=== PATIENT | male | born 1975 | race Caucasian/White ===

== ENCOUNTER 2019-05-03 19:57 | Emergency (ER) | payer OTHER ==
[~2019-05-03] VITALS: Ht 172.7 cm; Wt 106.0 kg
[2019-05-03 21:10] LABS: BASOPHILS # (AUTO) 0.1 X10'3 (0-0.2); BASOPHILS % (AUTO) 0.6 % (0-1); EOSINOPHILS % (AUTO) 0.3 % (0-6); HEMATOCRIT 45.1 % (42.0-52.0); HEMOGLOBIN 15.4 g/dl (14.0-17.9); LYMPHOCYTES # (AUTO) 1.5 X10'3 (1.1-4.8); LYMPHOCYTES % (AUTO) 12.1 % (21-51); MEAN CORPUSCULAR HEMOGLOBIN 31.2 PG (27.0-31.0); MEAN CORPUSCULAR HGB CONC 34.2 g/dL (33.0-36.5); MEAN CORPUSCULAR VOLUME 91.3 FL (78-98); MEAN PLATELET VOLUME 7.5 FL (7.4-10.4); MONOCYTES # (AUTO) 0.8 X10'3 (0-0.9); MONOCYTES % (AUTO) 6.4 % (2-12); NEUTROPHILS # (AUTO) 9.7 X10'3 (1.8-7.7); NEUTROPHILS % (AUTO) 80.6 % (42-75); PLATELET COUNT 217 X10'3 (140-440); RED BLOOD COUNT 4.94 X10'6 (4.70-6.10); RED CELL DISTRIBUTION WIDTH 12.8 % (11.5-14.5); WHITE BLOOD COUNT 12.1 X10'3 (4.5-11.0)
[2019-05-03 21:20] LABS: ALANINE AMINOTRANSFERASE 29 U/L (12-78); ALBUMIN 3.7 G/DL (3.4-5.0); ALBUMIN/GLOBULIN RATIO 0.9 (1.1-1.5); ALKALINE PHOSPHATASE 124 IU/L (46-116); ANION GAP 8 (8-16); BILIRUBIN,TOTAL 0.6 MG/DL (0.1-1.0); BLOOD UREA NITROGEN 11 MG/DL (7-18); BUN/CREATININE RATIO 12.5 (5.4-32.0); CALCIUM 9.2 MG/DL (8.5-10.1); CHLORIDE 103 MMOL/L (99-107); CREATININE 0.88 MG/DL (0.60-1.10); GLUCOSE 120 MG/DL (70-104); SODIUM 136 MMOL/L (135-145); TOTAL CARBON DIOXIDE 25.2 MMOL/L (24-32); TOTAL PROTEIN 7.7 G/DL (6.4-8.2); eGFR > 90 ML/MIN
[2019-05-03 21:22] LABS: POTASSIUM 4.5 MMOL/L (3.5-5.1)
[2019-05-03 21:32] LABS: ASPARTATE AMINO TRANSFERASE 35 U/L (10-37)
--- NOTE | 2019-05-03 21:32 | NUR ---
Awaiting lab results. Pt's girlfriend at bedside. Pt reports pain is minimal but he has a lot of pressure to the left face, swelling pronounced to the left cheek.
[2019-05-03] MEDS ORDERED: AMOX-422 PO (21:37)
[2019-05-03 21:51] VITALS: BP 188/117
== END 2019-05-03 21:57 | disposition home or self-care (01) ==
LOC: ER 19:58
DX: K04.7 Periapical abscess without sinus (principal); F17.200 Nicotine dependence, unspecified, uncomplicated; Z79.2 Long term (current) use of antibiotics
CPT/HCPCS: 36415; 80053; 85025; 99283

== ENCOUNTER 2019-05-05 16:11 | Emergency (ER) | payer OTHER ==
[~2019-05-05] VITALS: Ht 172.7 cm; Wt 109.1 kg
[~2019-05-05 16:11] MED LIST: AMOX-422 PO
[2019-05-05 16:57] VITALS: BP 155/101
== END 2019-05-05 17:16 | disposition home or self-care (01) ==
LOC: ER 16:12
DX: K04.7 Periapical abscess without sinus (principal); Z79.2 Long term (current) use of antibiotics
CPT/HCPCS: 99281

== ENCOUNTER 2022-02-14 21:25 | Emergency (ER) | payer OTHER ==
[~2022-02-14] VITALS: Ht 172.7 cm; Wt 109.1 kg
--- NOTE | 2022-02-14 21:50 | NUR ---
Pt presents to the ed with c/o flu-like symptoms for the past 3-4 days; he denies known contact with anyone with covid, or other infectious illnesses. The pt denies any alleviating or exacerbating factors; the pt denies sorethroat, sob cp, or gu symptoms; he is a/o, nad, jin w/d.
[2022-02-14] MEDS ORDERED: ondansetron 4mg rapidly disintigrating tab PO ONE (22:10)
[2022-02-14] MEDS ORDERED: acetaminophen 325mg tablet PO ONE (22:10)
--- NOTE | 2022-02-14 22:50 | NUR ---
pt medicated per mar
[2022-02-14] MEDS ORDERED: levoFLOXACIN 750MG TABLET PO ONE (23:00)
[2022-02-14] MEDS ORDERED: LEVO500T90 PO ×2 (23:04)
[2022-02-14] MEDS ORDERED: ALBU8.5H17 INH ×4 (23:04→23:15)
[2022-02-14] MEDS ORDERED: ONDA8TAB13 PO ×2 (23:04)
[2022-02-14] MEDS ORDERED: CIPR-202 PO ×2 (23:15)
[2022-02-14] MEDS ORDERED: ONDA-104 PO ×2 (23:15)
[2022-02-14 23:41] VITALS: BP 132/74
== END 2022-02-14 23:44 | disposition home or self-care (01) ==
LOC: ER 21:27
DX: J18.9 Pneumonia, unspecified organism (principal)
CPT/HCPCS: 71045; 99284

== ENCOUNTER 2022-02-18 09:46 | Inpatient (IN) | payer MEDICAID, OTHER ==
[~2022-02-18] VITALS: Ht 172.7 cm; Wt 110.9 kg
[~2022-02-18 09:46] MED LIST changes: +ALBU8.5H17 INH; -AMOX-422 PO; +CIPR-202 PO; +LEVO500T90 PO; +ONDA-104 PO; +ONDA8TAB13 PO
[2022-02-18] MEDS ORDERED: aspirin 81mg tab.chew PO ONE (10:05)
[2022-02-18] MEDS ORDERED: heparin 10,000 units/1 ML INJ IV ONE ×2 (10:05→10:15)
[2022-02-18] MEDS ORDERED: heparin 10,000 units/1 ML INJ IV PRN (10:20)
[2022-02-18] MEDS ORDERED: normal saline 1000ml 1,000 ML IV ONE (10:30)
[2022-02-18] MEDS: heparin 25,000 UNIT/250ml bag 250 ML IV SCH (10:34)
[2022-02-18 10:42] LABS: APTT 28 SECONDS (22-32); BASOPHILS % (AUTO) 0.3 % (0-1); EOSINOPHILS # (AUTO) 0.1 X10'3 (0-0.9); EOSINOPHILS % (AUTO) 0.6 % (0-6); HEMATOCRIT 38.6 % (42.0-52.0); LYMPHOCYTES # (AUTO) 2.4 X10'3 (1.1-4.8); LYMPHOCYTES % (AUTO) 19.7 % (21-51); MEAN CORPUSCULAR HEMOGLOBIN 30.8 PG (27.0-31.0); MEAN CORPUSCULAR HGB CONC 33.8 g/dL (33.0-36.5); MEAN CORPUSCULAR VOLUME 91.2 FL (78-98); MEAN PLATELET VOLUME 7.6 FL (7.4-10.4); MONOCYTES # (AUTO) 1.1 X10'3 (0-0.9); MONOCYTES % (AUTO) 8.9 % (2-12); NEUTROPHILS # (AUTO) 8.4 X10'3 (1.8-7.7); NEUTROPHILS % (AUTO) 70.5 % (42-75); PLATELET COUNT 342 X10'3 (140-440); RED BLOOD COUNT 4.23 X10'6 (4.70-6.10); RED CELL DISTRIBUTION WIDTH 12.8 % (11.5-14.5)
[2022-02-18 11:04] LABS: ALBUMIN 2.4 G/DL (3.4-5.0); ALBUMIN/GLOBULIN RATIO 0.4 (1.1-1.5); ANION GAP 9 (8-16); ASPARTATE AMINO TRANSFERASE 68 U/L (10-37); BILIRUBIN,TOTAL 0.4 MG/DL (0.1-1.0); BLOOD UREA NITROGEN 9 MG/DL (7-18); CALCIUM 8.5 MG/DL (8.5-10.1); CHLORIDE 102 MMOL/L (99-107); GLUCOSE 164 MG/DL (70-104); MAGNESIUM 2.3 MG/DL (1.5-2.4); POTASSIUM 3.7 MMOL/L (3.5-5.1); SODIUM 137 MMOL/L (135-145); TOTAL CARBON DIOXIDE 25.9 MMOL/L (24-32); eGFR 81 ML/MIN
[2022-02-18 11:05] LABS: ALANINE AMINOTRANSFERASE 61 U/L (12-78); ALKALINE PHOSPHATASE 95 IU/L (46-116)
[2022-02-18 11:28] LABS: ETHANOL < 0.010 GM/DL (0.0-0.010)
[2022-02-18] MEDS: metoprolol tartrate 1mg/ml inj IV SCH ×16 (11:44→21:15)
[2022-02-18] MEDS ORDERED: LORazepam 2 mg/ml vial IV ONE (12:10)
[2022-02-18] MEDS ORDERED: metoprolol tartrate 1mg/ml inj IV ONE (12:10)
[2022-02-18] MEDS ORDERED: nitroGLYCERIN 0.2mg/hour patch TD ONE (12:15)
[2022-02-18 12:44] LABS: C-REACTIVE PROTEIN 11.02 MG/DL (0.0-0.5)
[2022-02-18] MEDS ORDERED: furosemide 10 MG/1 ML 10ml inj IV ONE (13:00)
[2022-02-18] MEDS ORDERED: morphine 2 MG/ML inj. syringe IV PRN ×2 (15:00)
[2022-02-18] MEDS ORDERED: magnesium 4gm in 100ml NS 100 ML IV PRN (15:00)
[2022-02-18] MEDS ORDERED: mag hydrox/Alum hydrox/simeth 30ml oral suspension PO PRN (15:00)
[2022-02-18] MEDS ORDERED: ondansetron/PF 4mg/2ml inj IV PRN (15:00)
[2022-02-18] MEDS ORDERED: magnesium 2GM in 50ml NS 50 ML IV PRN (15:00)
[2022-02-18] MEDS ORDERED: potassium CL 10mEq/100ml bag 100 ML IV PRN (15:00)
[2022-02-18] MEDS ORDERED: acetaminophen 325mg tablet PO PRN (15:00)
[2022-02-18] MEDS ORDERED: magnesium hydroxide 30ml (MOM) UD suspension PO PRN (15:00)
[2022-02-18] MEDS ORDERED: magnesium Cl slow-release 64mg tablet PO PRN (15:00)
[2022-02-18] MEDS ORDERED: potassium Cl 20 mEq SR tablet PO PRN ×2 (15:00)
[2022-02-18] MEDS ORDERED: NO HOME MEDS (16:41)
[2022-02-18 17:15] VITALS: BP 115/80
[2022-02-18 17:26] LABS: MAGNESIUM 2.2 MG/DL (1.5-2.4); POTASSIUM 4.3 MMOL/L (3.5-5.1)
[2022-02-18 18:00] VITALS: BP 117/68
[2022-02-18] MEDS: cefTRIAXone 1g/NS 100ml IVPB 100 ML IV SCH (18:11)
[2022-02-18] MEDS: K and/or MAG REPLACEMENT MC SCH (20:00)
[2022-02-18] MEDS: docusate sod 100mg capsule PO SCH (21:04)
[2022-02-18] MEDS: carVEDilol 3.125mg tablet PO SCH (21:05)
[2022-02-18] MEDS: furosemide 40mg/4ml inj IV SCH (21:05)
[2022-02-18 22:00] VITALS: BP 119/71
[2022-02-19] MEDS: heparin 10,000 units/1 ML INJ IV PRN ×3 (00:59→22:35)
[2022-02-19 02:00] VITALS: BP 117/79
[2022-02-19] MEDS: heparin 25,000 UNIT/250ml bag 250 ML IV SCH ×2 (05:25→22:36)
[2022-02-19 06:00] VITALS: BP 127/88
--- NOTE | 2022-02-19 06:31 | NUR ---
Problems reprioritized. Patient report given, questions answered & plan of care reviewed with VARINDER Elliott. Heparin infusion, continues per protocol. Nex PTT at 0659, order keyed in.
[2022-02-19 07:47] LABS: BASOPHILS # (AUTO) 0.1 X10'3 (0-0.2); BASOPHILS % (AUTO) 0.6 % (0-1); EOSINOPHILS # (AUTO) 0.1 X10'3 (0-0.9); EOSINOPHILS % (AUTO) 0.7 % (0-6); HEMATOCRIT 35.6 % (42.0-52.0); LYMPHOCYTES # (AUTO) 1.9 X10'3 (1.1-4.8); LYMPHOCYTES % (AUTO) 20.1 % (21-51); MEAN CORPUSCULAR HEMOGLOBIN 30.4 PG (27.0-31.0); MEAN CORPUSCULAR HGB CONC 33.7 g/dL (33.0-36.5); MEAN PLATELET VOLUME 7.8 FL (7.4-10.4); MONOCYTES # (AUTO) 0.8 X10'3 (0-0.9); MONOCYTES % (AUTO) 9.2 % (2-12); NEUTROPHILS # (AUTO) 6.4 X10'3 (1.8-7.7); NEUTROPHILS % (AUTO) 69.4 % (42-75); PLATELET COUNT 290 X10'3 (140-440); RED BLOOD COUNT 3.96 X10'6 (4.70-6.10); RED CELL DISTRIBUTION WIDTH 12.6 % (11.5-14.5); WHITE BLOOD COUNT 9.2 X10'3 (4.5-11.0)
[2022-02-19 07:55] LABS: ALBUMIN 2.1 G/DL (3.4-5.0); ANION GAP 12 (8-16); BLOOD UREA NITROGEN 13 MG/DL (7-18); BUN/CREATININE RATIO 14.6 (5.4-32.0); CALCIUM 8.3 MG/DL (8.5-10.1); CHLORIDE 103 MMOL/L (99-107); CREATININE 0.89 MG/DL (0.60-1.10); GLUCOSE 144 MG/DL (70-104); POTASSIUM 3.9 MMOL/L (3.5-5.1); SODIUM 140 MMOL/L (135-145); TOTAL CARBON DIOXIDE 25.3 MMOL/L (24-32); eGFR > 90 ML/MIN
[2022-02-19] MEDS: K and/or MAG REPLACEMENT MC SCH ×2 (08:00→20:00)
[2022-02-19] MEDS: cefTRIAXone 1g/NS 100ml IVPB 100 ML IV SCH (09:09)
[2022-02-19] MEDS: aspirin 81mg, enteric-coated 1 TAB TABLET.DR PO SCH (09:09)
[2022-02-19] MEDS: lisinopril 5mg tablet PO SCH (09:09)
[2022-02-19] MEDS: atorvastatin 20mg tablet PO SCH (09:09)
[2022-02-19] MEDS: carVEDilol 3.125mg tablet PO SCH ×2 (09:10→20:41)
[2022-02-19] MEDS: docusate sod 100mg capsule PO SCH ×2 (09:10→20:41)
[2022-02-19] MEDS: furosemide 40mg/4ml inj IV SCH ×2 (09:10→20:41)
[2022-02-19 11:00] VITALS: BP 112/73
[2022-02-19 15:00] VITALS: BP 112/72
--- NOTE | 2022-02-19 17:13 | NUR ---
Mr Germain has been assessed as indicated. he has been noted to be both pleasant and cooperative. He has been visited by both friends and family this shift. His mother is at the bedside at this time. He is up to a chair at this time. He has been asleep most of this shift. His heparin drip has been adjusted 2x this shift including a period of it being held for 2 hours. The next PTT will be drawn at 2100 tonight. The patient is aware and compliant with the care. plan. He is to have a cardiac catheterization on Saturday. this will happen after heparin therapy and diuresing can be performed. He has been encouraged to limit PO fluids and to limit sodium. he has been educated on the limits of a heart health diet. His mother states that she spoke with the "doctor" and he said that Mr. Germain can have a burger from an outside source. Both mother and patient have been educated on the importance of limiting sodium intake at this time. Mr Germain is presently resting quietly with no s/s of distress or discomfort
[2022-02-19 18:00] VITALS: BP 112/72
--- NOTE | 2022-02-19 18:21 | NUR ---
Patient in room PCU 3023. I have received report from VARINDER Elliott and had the opportunity to ask questions and assume patient care. Heparin continues per protocol.
--- NOTE | 2022-02-19 18:24 | NUR ---
Problems reprioritized. Patient report given, questions answered & plan of care reviewed with VERENICE.
[2022-02-19 22:00] VITALS: BP 126/79
[2022-02-20 02:00] VITALS: BP 129/72
[2022-02-20 04:49] LABS: BASOPHILS % (AUTO) 0.2 % (0-1); EOSINOPHILS # (AUTO) 0.1 X10'3 (0-0.9); EOSINOPHILS % (AUTO) 0.9 % (0-6); HEMATOCRIT 35.5 % (42.0-52.0); HEMOGLOBIN 12.1 g/dl (14.0-17.9); LYMPHOCYTES # (AUTO) 2.4 X10'3 (1.1-4.8); LYMPHOCYTES % (AUTO) 24.7 % (21-51); MEAN CORPUSCULAR HEMOGLOBIN 30.8 PG (27.0-31.0); MEAN CORPUSCULAR HGB CONC 34.1 g/dL (33.0-36.5); MEAN CORPUSCULAR VOLUME 90.4 FL (78-98); MONOCYTES # (AUTO) 0.8 X10'3 (0-0.9); MONOCYTES % (AUTO) 7.9 % (2-12); NEUTROPHILS # (AUTO) 6.5 X10'3 (1.8-7.7); NEUTROPHILS % (AUTO) 66.3 % (42-75); PLATELET COUNT 323 X10'3 (140-440); RED BLOOD COUNT 3.92 X10'6 (4.70-6.10); WHITE BLOOD COUNT 9.8 X10'3 (4.5-11.0)
[2022-02-20 06:00] VITALS: BP 102/63
[2022-02-20 06:27] LABS: ALBUMIN 2.3 G/DL (3.4-5.0); ANION GAP 12 (8-16); BLOOD UREA NITROGEN 16 MG/DL (7-18); BUN/CREATININE RATIO 15.8 (5.4-32.0); CHLORIDE 104 MMOL/L (99-107); CREATININE 1.01 MG/DL (0.60-1.10); GLUCOSE 132 MG/DL (70-104); POTASSIUM 4.4 MMOL/L (3.5-5.1); SODIUM 142 MMOL/L (135-145); TOTAL CARBON DIOXIDE 26.4 MMOL/L (24-32); eGFR 80 ML/MIN
--- NOTE | 2022-02-20 06:52 | NUR ---
Problems reprioritized. Patient report given, questions answered & plan of care reviewed with VARINDER Elliott, Heparin continues per protocol.
[2022-02-20] MEDS: K and/or MAG REPLACEMENT MC SCH ×2 (08:00→20:00)
[2022-02-20] MEDS: cefTRIAXone 1g/NS 100ml IVPB 100 ML IV SCH (09:36)
[2022-02-20] MEDS: aspirin 81mg, enteric-coated 1 TAB TABLET.DR PO SCH (09:36)
[2022-02-20] MEDS: furosemide 40mg/4ml inj IV SCH (09:36)
[2022-02-20] MEDS: atorvastatin 20mg tablet PO SCH (09:37)
[2022-02-20] MEDS: docusate sod 100mg capsule PO SCH ×2 (09:37→21:47)
[2022-02-20] MEDS: carVEDilol 3.125mg tablet PO SCH ×2 (09:37→21:47)
[2022-02-20] MEDS: lisinopril 5mg tablet PO SCH (09:37)
[2022-02-20 11:00] VITALS: BP 123/71
[2022-02-20] MEDS ORDERED: furosemide 40mg/4ml inj IV SCH (11:35)
[2022-02-20] MEDS: heparin 25,000 UNIT/250ml bag 250 ML IV SCH (13:48)
[2022-02-20 15:00] VITALS: BP 95/60
[2022-02-20] MEDS: heparin 10,000 units/1 ML INJ IV PRN (16:11)
[2022-02-20 18:00] VITALS: BP 104/68
[2022-02-20 22:00] VITALS: BP 95/59
[2022-02-21] VITALS (12 sets, daily range): BP systolic 103–125; BP diastolic 65–82
[2022-02-21] MEDS: heparin 25,000 UNIT/250ml bag 250 ML IV SCH (03:00)
[2022-02-21 05:08] LABS: BASOPHILS # (AUTO) 0.1 X10'3 (0-0.2); BASOPHILS % (AUTO) 1.8 % (0-1); EOSINOPHILS # (AUTO) 0.1 X10'3 (0-0.9); EOSINOPHILS % (AUTO) 1.4 % (0-6); HEMATOCRIT 36.2 % (42.0-52.0); HEMOGLOBIN 12.1 g/dl (14.0-17.9); LYMPHOCYTES % (AUTO) 23.7 % (21-51); MEAN CORPUSCULAR HGB CONC 33.4 g/dL (33.0-36.5); MEAN CORPUSCULAR VOLUME 89.7 FL (78-98); MEAN PLATELET VOLUME 7.5 FL (7.4-10.4); MONOCYTES # (AUTO) 0.6 X10'3 (0-0.9); MONOCYTES % (AUTO) 7.1 % (2-12); NEUTROPHILS # (AUTO) 5.5 X10'3 (1.8-7.7); PLATELET COUNT 326 X10'3 (140-440); RED BLOOD COUNT 4.04 X10'6 (4.70-6.10); RED CELL DISTRIBUTION WIDTH 12.9 % (11.5-14.5); WHITE BLOOD COUNT 8.3 X10'3 (4.5-11.0)
[2022-02-21 05:10] LABS: ALBUMIN 2.2 G/DL (3.4-5.0); ANION GAP 10 (8-16); BLOOD UREA NITROGEN 14 MG/DL (7-18); BUN/CREATININE RATIO 15.7 (5.4-32.0); CALCIUM 8.7 MG/DL (8.5-10.1); CHLORIDE 104 MMOL/L (99-107); CREATININE 0.89 MG/DL (0.60-1.10); GLUCOSE 127 MG/DL (70-104); POTASSIUM 3.9 MMOL/L (3.5-5.1); SODIUM 140 MMOL/L (135-145); TOTAL CARBON DIOXIDE 25.9 MMOL/L (24-32); eGFR > 90 ML/MIN
[2022-02-21] MEDS ORDERED: LIDOcaine 1% (10mg/ml)w/preservative inj. 20ml MDV ONE (07:35)
[2022-02-21] MEDS ORDERED: fentaNYL/PF 50MCG/1 ML 2ML syringe ONE (07:35)
[2022-02-21] MEDS ORDERED: midazolam 1 mg/ML 2ml injection ONE ×2 (07:35→08:57)
[2022-02-21] MEDS ORDERED: iohexol 350 MG/ML 50ML vial IV ONE (07:35)
[2022-02-21] MEDS ORDERED: iohexol 350MG/ML 100ml bottle IV ONE (07:36)
[2022-02-21] MEDS: K and/or MAG REPLACEMENT MC SCH ×2 (08:00→19:19)
[2022-02-21] MEDS ORDERED: diphenhydrAMINE 50 mg/ml inj ONE (08:36)
[2022-02-21] MEDS ORDERED: metoprolol tartrate 1mg/ml inj IV ONE (08:39)
[2022-02-21] MEDS ORDERED: proCHLORperazine 10 MG/2 ml inj IV PRN (09:25)
[2022-02-21] MEDS ORDERED: HYDROcodone/acetaminophen 5mg/325mg tablet PO PRN (09:25)
[2022-02-21] MEDS ORDERED: HYDROcodone/acetaminophen 10/325mg tab PO PRN (09:25)
[2022-02-21] MEDS ORDERED: ondansetron/PF 4mg/2ml inj IV PRN (09:25)
[2022-02-21] MEDS ORDERED: OXAZEpam 15mg capsule PO PRN (09:25)
[2022-02-21] MEDS: aspirin 81mg, enteric-coated 1 TAB TABLET.DR PO SCH (11:34)
[2022-02-21] MEDS: docusate sod 100mg capsule PO SCH ×2 (11:34→19:19)
[2022-02-21] MEDS: atorvastatin 20mg tablet PO SCH (11:34)
[2022-02-21] MEDS: spironolactone 25 MG tablet PO SCH (11:35)
[2022-02-21] MEDS: lisinopril 5mg tablet PO SCH (11:35)
[2022-02-21] MEDS: cefTRIAXone 1g/NS 100ml IVPB 100 ML IV SCH (11:36)
[2022-02-21] MEDS: sodium chloride 0.45% 1,000 ML IV SCH ×2 (11:37→20:25)
[2022-02-21] MEDS: carvedilol 6.25mg tablet PO SCH ×2 (11:40→19:51)
[2022-02-21] MEDS: furosemide 40mg tablet PO SCH (17:19)
--- NOTE | 2022-02-21 17:45 | NUR ---
Mr Germain has been assessed as indicated. he continues to deny pain. He has successfully completed a heart cath today. There was no intervention done. he did lie still for 6 hours. the right groin remains supple with scant shadow drainage. He has family at the bedside and is resting quietly
--- NOTE | 2022-02-21 18:27 | NUR ---
Problems reprioritized. Patient report given, questions answered & plan of care reviewed with KEVAN Horan
[2022-02-22 02:00] VITALS: BP 110/71
[2022-02-22 06:00] VITALS: BP 117/73
--- NOTE | 2022-02-22 06:22 | NUR ---
Problems reprioritized. Patient report given, questions answered & plan of care reviewed with Lexi REEDER.
[2022-02-22] MEDS: sodium chloride 0.45% 1,000 ML IV SCH (06:25)
[2022-02-22 07:17] LABS: BASOPHILS % (AUTO) 0.6 % (0-1); EOSINOPHILS # (AUTO) 0.1 X10'3 (0-0.9); EOSINOPHILS % (AUTO) 1.2 % (0-6); HEMATOCRIT 39.4 % (42.0-52.0); HEMOGLOBIN 13.4 g/dl (14.0-17.9); LYMPHOCYTES # (AUTO) 1.8 X10'3 (1.1-4.8); LYMPHOCYTES % (AUTO) 25.3 % (21-51); MEAN CORPUSCULAR HEMOGLOBIN 30.8 PG (27.0-31.0); MEAN CORPUSCULAR HGB CONC 33.9 g/dL (33.0-36.5); MEAN CORPUSCULAR VOLUME 90.8 FL (78-98); MEAN PLATELET VOLUME 7.7 FL (7.4-10.4); MONOCYTES # (AUTO) 0.5 X10'3 (0-0.9); MONOCYTES % (AUTO) 7.4 % (2-12); NEUTROPHILS # (AUTO) 4.6 X10'3 (1.8-7.7); NEUTROPHILS % (AUTO) 65.5 % (42-75); PLATELET COUNT 311 X10'3 (140-440); RED BLOOD COUNT 4.35 X10'6 (4.70-6.10); RED CELL DISTRIBUTION WIDTH 12.9 % (11.5-14.5)
[2022-02-22] MEDS: K and/or MAG REPLACEMENT MC SCH (08:00)
--- NOTE | 2022-02-22 08:00 | NUR ---
Mr Germain has been assessed as indicated. He had breakfast from an outside source that was provided by a family member. He continues to deny pain. He ambulates about the room with a steady gait independently. He anticipates being DC to home today. He ic compliant with the plan to do so. He presently has no s/s of distress or discomfort
[2022-02-22 08:01] LABS: ALBUMIN 2.5 G/DL (3.4-5.0); ANION GAP 9 (8-16); BLOOD UREA NITROGEN 11 MG/DL (7-18); BUN/CREATININE RATIO 11.6 (5.4-32.0); CALCIUM 8.5 MG/DL (8.5-10.1); CHLORIDE 106 MMOL/L (99-107); CREATININE 0.95 MG/DL (0.60-1.10); GLUCOSE 123 MG/DL (70-104); SODIUM 140 MMOL/L (135-145); TOTAL CARBON DIOXIDE 24.7 MMOL/L (24-32); eGFR 86 ML/MIN
--- NOTE | 2022-02-22 08:58 | NUR ---
Initial: Pt admitted w/ NSTEMI and acute CHF per EMR, underwent cardiac cath on 02/21. Currently on Heart Healthy diet w/ avg 75% of meals which meets 100% of est protein needs and 93% of est energy needs. No nutrition intervention implemented at this time. LBM 02/21 receiving routine colace, though pt sometimes refuses. Will continue to monitor. Recs: 1. Continue Heart Healthy diet as tolerated 2. Bowel care per rx 3. weekly wts Addendum: 02/22/22 at [address]án [address] Amended: Links added.
[2022-02-22] MEDS: furosemide 40mg tablet PO SCH (09:09)
[2022-02-22] MEDS: atorvastatin 20mg tablet PO SCH (09:09)
[2022-02-22] MEDS: spironolactone 25 MG tablet PO SCH (09:09)
[2022-02-22] MEDS: docusate sod 100mg capsule PO SCH (09:09)
[2022-02-22] MEDS: lisinopril 5mg tablet PO SCH (09:10)
[2022-02-22] MEDS: aspirin 81mg, enteric-coated 1 TAB TABLET.DR PO SCH (09:10)
[2022-02-22] MEDS: carvedilol 6.25mg tablet PO SCH (09:10)
[2022-02-22] MEDS: cefTRIAXone 1g/NS 100ml IVPB 100 ML IV SCH (09:11)
[2022-02-22] MEDS ORDERED: ATOR20TA66 PO (10:30)
[2022-02-22] MEDS ORDERED: LISI5TAB22 PO (10:30)
[2022-02-22] MEDS ORDERED: ASPI-1071 PO (10:30)
[2022-02-22] MEDS ORDERED: FURO40TA4 PO (10:30)
[2022-02-22] MEDS ORDERED: SPIR25TA PO (10:30)
[2022-02-22] MEDS ORDERED: CARV6.253 PO (10:30)
[2022-02-22 11:00] VITALS: BP 133/66
--- NOTE | 2022-02-22 11:30 | NUR ---
Mr Germain has been made aware of the DC order. He states that he is waiting for family to arrive to take him home. He wants to wait to review DC instructions until family is at the bedside.
--- NOTE | 2022-02-22 12:35 | NUR ---
Mr Germain has been DC to home. IV access has been removed. DC instructions have been reviewed with him and his . They both express understanding of the DC instructions. He signed a form to document this. He was driven home by his son in a private vehicle driven by his son. At the time of DC he was compliant with the plan to DC. He has no s/s of distress or discomfort at the time of discharge.
== END 2022-02-22 12:35 | disposition home or self-care (01) | DRG 192 ==
LOC: ER 09:47 → ED HOLD 15:01 → PCU 3S 17:06
PROVIDERS: ADMIT Family Medicine; ATTEND Family Medicine
PROC: 4A023N7 Measurement of Cardiac Sampling and Pressure, Left Heart, Percutaneous Approach (ICD-10-PCS; principal; 2022-02-21)
PROC: B2111ZZ Fluoroscopy of Multiple Coronary Arteries using Low Osmolar Contrast (ICD-10-PCS; 2022-02-21)
PROC: B2151ZZ Fluoroscopy of Left Heart using Low Osmolar Contrast (ICD-10-PCS; 2022-02-21)
PROC: B41F1ZZ Fluoroscopy of Right Lower Extremity Arteries using Low Osmolar Contrast (ICD-10-PCS; 2022-02-21)
DX: I50.21 Acute systolic (congestive) heart failure (principal); I21.4 Non-ST elevation (NSTEMI) myocardial infarction; J12.9 Viral pneumonia, unspecified; Z20.822 Contact with and (suspected) exposure to COVID-19; M10.9 Gout, unspecified; F17.210 Nicotine dependence, cigarettes, uncomplicated; I25.10 Atherosclerotic heart disease of native coronary artery without angina pectoris; I34.0 Nonrheumatic mitral (valve) insufficiency; Z82.49 Family history of ischemic heart disease and other diseases of the circulatory system; Z79.899 Other long term (current) drug therapy; Z87.01 Personal history of pneumonia (recurrent)
CPT/HCPCS: 36415; 71045; 80048; 80053; 80320; 83735; 83880; 84132; 84145; 84443; 84484; 85025; 85610; 85730; 86140; 87081; 87635; 93005; 93306; 93458; 96365; 96375; 96376; 99152; 99153; 99291; A4620; A6258; C1760; C1769; C9803; G0378; J0696; J1200; J1644; J1940; J2060; J2250; J3010; J3490; J7030; Q9967

== ENCOUNTER 2022-09-27 20:27 | Inpatient (IN) | payer MEDICAID ==
[~2022-09-27] VITALS: Ht 172.7 cm; Wt 108.8 kg
--- NOTE | 2022-09-27 18:00 | NUR ---
Patient in room ED 3. I have received report from Ros REEDER and had the opportunity to ask questions and assume patient care. Addendum: 09/28/22 at 0301 by Jing Zheng RN trena
[~2022-09-27 20:27] MED LIST changes: -ALBU8.5H17 INH; +ASPI-1071 PO; +ATOR20TA66 PO; +CARV6.253 PO; -CIPR-202 PO; +FURO40TA4 PO; -LEVO500T90 PO; +LISI5TAB22 PO; -ONDA-104 PO; -ONDA8TAB13 PO; +SPIR25TA PO
[2022-09-27] MEDS ORDERED: temazepam 15mg capsule PO PRN (21:00)
[2022-09-27 21:01] LABS: BASOPHILS % (AUTO) 0.5 % (0-1); EOSINOPHILS % (AUTO) 0.2 % (0-6); HEMATOCRIT 41.8 % (42.0-52.0); HEMOGLOBIN 13.8 g/dl (14.0-17.9); LYMPHOCYTES % (AUTO) 11.5 % (21-51); MEAN CORPUSCULAR HEMOGLOBIN 30.6 PG (27.0-31.0); MEAN CORPUSCULAR HGB CONC 32.9 g/dL (33.0-36.5); MEAN CORPUSCULAR VOLUME 92.9 FL (78-98); MEAN PLATELET VOLUME 7.6 FL (7.4-10.4); MONOCYTES # (AUTO) 0.5 X10'3 (0-0.9); MONOCYTES % (AUTO) 5.8 % (2-12); NEUTROPHILS # (AUTO) 6.9 X10'3 (1.8-7.7); PLATELET COUNT 315 X10'3 (140-440); RED CELL DISTRIBUTION WIDTH 12.8 % (11.5-14.5); WHITE BLOOD COUNT 8.4 X10'3 (4.5-11.0)
[2022-09-27 21:25] LABS: ALANINE AMINOTRANSFERASE 40 U/L (12-78); ALBUMIN 3.5 G/DL (3.4-5.0); ALBUMIN/GLOBULIN RATIO 0.9 (1.1-1.5); ALKALINE PHOSPHATASE 146 IU/L (46-116); ANION GAP 10 (8-16); ASPARTATE AMINO TRANSFERASE 32 U/L (10-37); BILIRUBIN,TOTAL 0.9 MG/DL (0.1-1.0); BLOOD UREA NITROGEN 25 MG/DL (7-18); BUN/CREATININE RATIO 13.8 (5.4-32.0); CALCIUM 8.5 MG/DL (8.5-10.1); CHLORIDE 80 MMOL/L (99-107); CREATININE 1.81 MG/DL (0.60-1.10); TOTAL CARBON DIOXIDE 24.1 MMOL/L (24-32); TOTAL PROTEIN 7.2 G/DL (6.4-8.2); eGFR 41 ML/MIN
[2022-09-27] MEDS ORDERED: normal saline 1000ML IV soln IVB ONE ×2 (21:35→21:40)
[2022-09-27 21:37] LABS: SODIUM 114 MMOL/L (135-145)
[2022-09-27 21:47] LABS: GLUCOSE 1026 MG/DL (70-104)
[2022-09-27] MEDS ORDERED: insulin regular, human 10 units/0.1 ml syringe SQ ONE (22:00)
[2022-09-27] MEDS ORDERED: insulin regular, human 10 units/0.1 ml syringe IV ONE (22:00)
[2022-09-27 22:54] LABS: CLARITY,URINE CLEAR (Clear); GLUCOSE, URINE >=1000 mg/dl (Neg); KETONES,URINE NEGATIVE (Neg); LEUKOCYTE ESTERASE ,URINE NEGATIVE (Neg); NITRITES, URINE NEGATIVE (Neg); OCCULT BLOOD,URINE NEGATIVE (Neg); PH,URINE 5.5 (4.8-8.0); PROTEIN,URINE NEGATIVE (Neg); UROBILINOGEN,URINE 0.2 E.U/dL (0.2-1.0)
[2022-09-27 23:03] LABS: COLOR,URINE STRAW (Yellow); UA COLLECTION TYPE CLN CATCH MIDSTREAM
[2022-09-27 23:05] LABS: BACTERIA,URINE NONE SEEN /HPF (Neg); MUCUS STRANDS NONE SEEN /LPF (Neg); RBC,URINE 0-2 /HPF (0-2); SQUAMOUS EPITHELIAL CELL,UR FEW /LPF (FEW); WBC,URINE NONE SEEN /HPF (0-4)
[2022-09-27] MEDS ORDERED: dextrose 50%-water 50ml dispensing syringe IV PRN ×2 (23:05)
[2022-09-27] MEDS ORDERED: DEXTROSE 15 GM of carb/4 tabs (each vial/BOTTLE has 4 tablets) PO PRN ×2 (23:05)
[2022-09-27] MEDS ORDERED: MESSAGE TO PHARMACY PO ONE (23:05)
[2022-09-27] MEDS ORDERED: glucagon, human recombinant 1mg kit SUBCUT PRN (23:05)
[2022-09-27] MEDS ORDERED: ondansetron/PF 4mg/2ml inj IV PRN (23:10)
[2022-09-27] MEDS ORDERED: acetaminophen 325mg tablet PO PRN ×2 (23:10)
[2022-09-27] MEDS: normal saline 1000ml 1,000 ML IV SCH (23:18)
[2022-09-27 23:38] LABS: ANION GAP 7 (8-16); BLOOD UREA NITROGEN 25 MG/DL (7-18); BUN/CREATININE RATIO 17.6 (5.4-32.0); CHLORIDE 91 MMOL/L (99-107); CREATININE 1.42 MG/DL (0.60-1.10); PHOSPHORUS 3.1 MG/DL (2.3-4.5); POTASSIUM 4.7 MMOL/L (3.5-5.1); SODIUM 122 MMOL/L (135-145); TOTAL CARBON DIOXIDE 24.1 MMOL/L (24-32); eGFR 54 ML/MIN
[2022-09-27 23:47] LABS: GLUCOSE 589 MG/DL (70-104)
[2022-09-27 23:54] LABS: HEMOGLOBIN A1C > 14.0 % (4.5-6.2)
[2022-09-28 00:12] LABS: CHOL/HDL RATIO 4.6 (0.00-4.99); CHOLESTEROL 132 MG/DL (0-200); HDL CHOLESTEROL 29 MG/DL (35-60); LDL CHOLESTEROL 39 MG/DL (50-100); TRIGLYCERIDES 646 MG/DL (20-135)
[2022-09-28] MEDS ORDERED: SPIR25TA5 PO (00:16)
[2022-09-28] MEDS ORDERED: LISI5TAB22 PO (00:16)
[2022-09-28] MEDS ORDERED: ASPI-1397 PO (00:18)
[2022-09-28] MEDS ORDERED: CARV6.2553 PO (00:18)
[2022-09-28] MEDS ORDERED: ATOR20TA66 PO (00:20)
[2022-09-28] MEDS ORDERED: FURO40TA4 PO (00:20)
[2022-09-28] MEDS: insulin glargine (Lantus) pen - multi-dose SQ SCH ×2 (00:55→21:49)
[2022-09-28] MEDS: insulin Lispro (HumaLOG) vial - multi-dose SQ SCH ×4 (00:57→20:34)
--- NOTE | 2022-09-28 01:02 | NUR ---
Following level 2 per night insulin adjustment schedule.
--- NOTE | 2022-09-28 02:58 | NUR ---
Patient in room ED 3. I have received report from [Lesley CERAMIC PAINTER] and had the opportunity to ask questions and assume patient care.
[2022-09-28 03:16] VITALS: BP 127/90
[2022-09-28 06:00] VITALS: BP 122/87
--- NOTE | 2022-09-28 06:00 | NUR ---
Problems reprioritized. Patient report given, questions answered & plan of care reviewed with Nuvia REEDER.
[2022-09-28 06:34] LABS: BASOPHILS % (AUTO) 0.3 % (0-1); EOSINOPHILS % (AUTO) 0.6 % (0-6); HEMATOCRIT 32.8 % (42.0-52.0); HEMOGLOBIN 11.5 g/dl (14.0-17.9); LYMPHOCYTES # (AUTO) 2.3 X10'3 (1.1-4.8); LYMPHOCYTES % (AUTO) 36.3 % (21-51); MEAN CORPUSCULAR HEMOGLOBIN 31.5 PG (27.0-31.0); MEAN CORPUSCULAR HGB CONC 35.2 g/dL (33.0-36.5); MEAN CORPUSCULAR VOLUME 89.6 FL (78-98); MEAN PLATELET VOLUME 7.5 FL (7.4-10.4); MONOCYTES # (AUTO) 0.6 X10'3 (0-0.9); MONOCYTES % (AUTO) 9.2 % (2-12); NEUTROPHILS # (AUTO) 3.4 X10'3 (1.8-7.7); NEUTROPHILS % (AUTO) 53.6 % (42-75); PLATELET COUNT 197 X10'3 (140-440); RED BLOOD COUNT 3.66 X10'6 (4.70-6.10); RED CELL DISTRIBUTION WIDTH 12.2 % (11.5-14.5); WHITE BLOOD COUNT 6.3 X10'3 (4.5-11.0)
[2022-09-28 07:02] LABS: ALANINE AMINOTRANSFERASE 30 U/L (12-78); ALBUMIN 2.7 G/DL (3.4-5.0); ALBUMIN/GLOBULIN RATIO 0.8 (1.1-1.5); ALKALINE PHOSPHATASE 111 IU/L (46-116); ANION GAP 9 (8-16); ASPARTATE AMINO TRANSFERASE 24 U/L (10-37); BILIRUBIN,TOTAL 0.3 MG/DL (0.1-1.0); BLOOD UREA NITROGEN 22 MG/DL (7-18); CHLORIDE 93 MMOL/L (99-107); CREATININE 1.16 MG/DL (0.60-1.10); GLUCOSE 389 MG/DL (70-104); POTASSIUM 4.6 MMOL/L (3.5-5.1); SODIUM 126 MMOL/L (135-145); TOTAL PROTEIN 6.2 G/DL (6.4-8.2); eGFR 68 ML/MIN
[2022-09-28] MEDS: heparin, porcine 5000 units/ml vial SQ SCH ×2 (08:00→20:20)
[2022-09-28] MEDS: lisinopril 5mg tablet PO SCH (09:42)
[2022-09-28] MEDS: aspirin 81mg, enteric-coated 1 TAB TABLET.DR PO SCH (09:42)
[2022-09-28] MEDS: carvedilol 6.25mg tablet PO SCH ×2 (09:42→20:20)
[2022-09-28] MEDS: atorvastatin 20mg tablet PO SCH (09:42)
[2022-09-28] MEDS: normal saline 1000ml 1,000 ML IV SCH ×2 (09:45→19:15)
[2022-09-28 11:00] VITALS: BP 106/61
[2022-09-28 13:00] VITALS: BP 100/62
--- NOTE | 2022-09-28 15:31 | NUR ---
DM Consult: Pt admit DX new onset T2DM, HTN, CKD 3, SOB, and hyponatremia A1C >14.0% w/ Glu currently 184mg/dl down from 1026mg/dl on admit per EMR. Noted TG 646mg/dl on admit receiving lipitor per EMR. PO 0-25% initial carb controlled/heart healthy meals though sleepy today. Pt/SO seen by RD for thorough written/verbal DM and verbal heart healthy diet eds w/ RD contact information provided. RD reviewed carb sources, types of carbs, carb portioning, protein sources, unsaturated vs saturated fats, balanced meals, appropriate snacks, hydration, and sick day guidelines. RD also reviewed signs/symptoms for low/high Glu, nutrition facts label reading, and nutrition strategies surrounding periods of exercise. RD encouraged pt/SO to contact dietitian's office of further questions/concerns. LBM 09/27. Will monitor for further PO trends and nutrition intervention needs this admit. Rec: 1. continue carb controlled/heart healthy diet; encourage PO 2. monitor PO trends for ONS needs 3. routine bowel care 4. weekly wts Addendum: 09/28/22 at [address] Amended: Links added.
[2022-09-28 18:00] VITALS: BP 105/65
--- NOTE | 2022-09-28 18:08 | NUR ---
Student documentation: I have reviewed and agree with all interventions, assessments performed and documented by Elisabeth.
--- NOTE | 2022-09-28 18:11 | NUR ---
Patient in room PCU 3011. I have received report from Nuvia REEDER/Elisabeth and had the opportunity to ask questions and assume patient care.
--- NOTE | 2022-09-28 18:12 | NUR ---
Problems reprioritized. Patient report given, questions answered & plan of care reviewed with VARINDER Ch.
[2022-09-28 22:00] VITALS: BP 106/67
[2022-09-29 02:00] VITALS: BP 121/75
[2022-09-29] MEDS: normal saline 1000ml 1,000 ML IV SCH (05:59)
[2022-09-29 06:00] VITALS: BP 100/63
--- NOTE | 2022-09-29 06:46 | NUR ---
Problems reprioritized. Patient report given, questions answered & plan of care reviewed with Kaycee REEDER/Edi Student RN.
[2022-09-29 06:53] LABS: BASOPHILS % (AUTO) 0.4 % (0-1); HEMATOCRIT 30.9 % (42.0-52.0); HEMOGLOBIN 10.7 g/dl (14.0-17.9); MEAN CORPUSCULAR HEMOGLOBIN 31.7 PG (27.0-31.0); MEAN CORPUSCULAR HGB CONC 34.8 g/dL (33.0-36.5); MEAN CORPUSCULAR VOLUME 91.2 FL (78-98); MEAN PLATELET VOLUME 7.4 FL (7.4-10.4); MONOCYTES # (AUTO) 0.4 X10'3 (0-0.9); MONOCYTES % (AUTO) 8.5 % (2-12); NEUTROPHILS # (AUTO) 2.2 X10'3 (1.8-7.7); NEUTROPHILS % (AUTO) 47.1 % (42-75); PLATELET COUNT 181 X10'3 (140-440); RED BLOOD COUNT 3.39 X10'6 (4.70-6.10); RED CELL DISTRIBUTION WIDTH 12.4 % (11.5-14.5); WHITE BLOOD COUNT 4.7 X10'3 (4.5-11.0)
[2022-09-29 07:09] LABS: ALANINE AMINOTRANSFERASE 29 U/L (12-78); ALBUMIN 2.5 G/DL (3.4-5.0); ALBUMIN/GLOBULIN RATIO 0.9 (1.1-1.5); ALKALINE PHOSPHATASE 89 IU/L (46-116); ANION GAP 7 (8-16); ASPARTATE AMINO TRANSFERASE 24 U/L (10-37); BILIRUBIN,TOTAL 0.2 MG/DL (0.1-1.0); BLOOD UREA NITROGEN 14 MG/DL (7-18); BUN/CREATININE RATIO 16.7 (5.4-32.0); CHLORIDE 103 MMOL/L (99-107); CREATININE 0.84 MG/DL (0.60-1.10); GLUCOSE 210 MG/DL (70-104); POTASSIUM 4.2 MMOL/L (3.5-5.1); SODIUM 134 MMOL/L (135-145); TOTAL CARBON DIOXIDE 24.5 MMOL/L (24-32); TOTAL PROTEIN 5.4 G/DL (6.4-8.2); eGFR > 90 ML/MIN
[2022-09-29] MEDS: insulin Lispro (HumaLOG) vial - multi-dose SQ SCH ×2 (09:36→14:02)
[2022-09-29] MEDS: lisinopril 5mg tablet PO SCH (09:38)
[2022-09-29] MEDS: carvedilol 6.25mg tablet PO SCH (09:39)
[2022-09-29] MEDS: aspirin 81mg, enteric-coated 1 TAB TABLET.DR PO SCH (09:39)
[2022-09-29] MEDS: atorvastatin 20mg tablet PO SCH (09:39)
[2022-09-29] MEDS: heparin, porcine 5000 units/ml vial SQ SCH (09:41)
[2022-09-29 11:00] VITALS: BP 99/58
[2022-09-29] MEDS ORDERED: METF-1203 PO (13:58)
[2022-09-29] MEDS ORDERED: BLOO1EAC70 MC (13:59)
[2022-09-29] MEDS ORDERED: LANC-854 TOP (14:05)
[2022-09-29] MEDS ORDERED: BLOO-122 METER (14:05)
[2022-09-29] MEDS ORDERED: METF-900 PO (14:07)
[2022-09-29 15:00] VITALS: BP 112/67
--- NOTE | 2022-09-29 17:04 | NUR ---
Patient cleared for discharge. Patient aox4, vitals stable, denies pain. Patient and verbalized understanding of discharge instructions and prescriptions. Patient practiced checking his blood sugar and expressed an understanding of the process. Confirmed with patient's pharmacy that all the diabetes management prescriptions are there and ready for pickup. Patient gathered all belongings. IV and tele discontinued
== END 2022-09-29 17:19 | disposition home or self-care (01) | DRG 420 ==
LOC: ER 20:28 → ED HOLD 23:11 → PCU 3S 09-28 03:08
PROVIDERS: ADMIT Internal Medicine; ATTEND Family Medicine
DX: E11.65 Type 2 diabetes mellitus with hyperglycemia (principal); N17.9 Acute kidney failure, unspecified; E11.22 Type 2 diabetes mellitus with diabetic chronic kidney disease; I13.0 Hypertensive heart and chronic kidney disease with heart failure and stage 1 through stage 4 chronic kidney disease, or unspecified chronic kidney disease; I50.22 Chronic systolic (congestive) heart failure; E78.00 Pure hypercholesterolemia, unspecified; D64.9 Anemia, unspecified; E87.5 Hyperkalemia; I25.10 Atherosclerotic heart disease of native coronary artery without angina pectoris; N18.30 Chronic kidney disease, stage 3 unspecified; Z83.3 Family history of diabetes mellitus; I25.2 Old myocardial infarction; Z87.01 Personal history of pneumonia (recurrent); Z87.891 Personal history of nicotine dependence
CPT/HCPCS: 36415; 71045; 80048; 80053; 80061; 81001; 82948; 83036; 83880; 84100; 84484; 85025; 87081; 93306; 99285; G0378; J1644; J1815; J7030

== ENCOUNTER 2025-08-30 17:07 | Emergency (ER) | payer MEDICAID ==
[~2025-08-30] VITALS: Ht 172.7 cm; Wt 109.3 kg
[~2025-08-30 17:07] MED LIST changes: -ASPI-1071 PO; +ASPI-1397 PO; +BLOO-122 METER; +BLOO1EAC70 MC; -CARV6.253 PO; +CARV6.2553 PO; +LANC-854 TOP; +METF-900 PO; -SPIR25TA PO; +SPIR25TA5 PO
[2025-08-30 17:15] VITALS: BP 164/111; PULSE 108; RESP 18; TEMP 98.4; O2SAT 99
--- NOTE | 2025-08-30 17:38 | RADIOLOGY REPORT ---
CLINICAL HISTORY: RIGHT ANKLE PAIN TECHNIQUE: 3 views of the left ankle were obtained. COMPARISON: None FINDINGS: No acute fracture or dislocation is seen. The ankle mortise is intact. There is lateral ankle soft tissue swelling. There is a moderate enthesophyte at the calcaneal insertion of the Achilles tendon. IMPRESSION: Lateral ankle soft tissue swelling. No acute fracture seen.
--- NOTE | 2025-08-30 18:46 | Physician Documentation ---
History of Present Illness ~ Chief Complaint: Ankle pain Stated Complaint: ANKLE SWELLING Time Seen by MD: 17:21 OK to notify your PCP?: Yes Primary Medical Doctor: NONE Source: patient, RN/ HPI Patient is seen today with complaints of right ankle pain and swelling. Patient admits to history of gout in his concerned he might have a gout flare-up as he did eat some significant amount of red meat 5-7 days ago. Patient also states he rolled his ankle about six days ago and then had some swelling about four days ago in the right ankle and increased pain. Patient states he is now having trouble ambulating because of pain of the right ankle. Patient has no other concern or complaint at this time. Tetanus witin 5 years: No Medication Reconciliation Allergies: Coded Allergies: No Known Allergies (Unverified , 08/30/25) Scheduled Aspirin (Aspirin EC), 1 TAB PO DAILY, (Reported) Atorvastatin Calcium (Atorvastatin Calcium), 2 TAB PO DAILY, (Reported) Blood Sugar Diagnostic (Glucose Test Strip), 1 STRIP METER DAILY Carvedilol (Carvedilol), 1 TAB PO BID, (Reported) Furosemide (Furosemide), 1 TAB PO DAILY, (Reported) Lisinopril (Lisinopril), 1 TAB PO DAILY, (Reported) Metformin Hcl* (Metformin ER*), 1 TAB PO Q12H Spironolactone (Spironolactone), 1 TAB PO DAILY, (Reported) Durable Medical Equipment Blood-Glucose Meter (Blood Glucose Meter), EACH MC, (DME) Lancets (Lancets), LANCETS TOP DAILY, (DME) Past Medical History Past Medical History: Coronary Artery Disease, Congestive Heart Failure, High Cholesterol, Hypertension, Myocardial Infarction, Pneumonia Past Surgical History: no surgical history Alcohol Use: Occasionally Drug Use: none Lives In: Home Occupation: employed Past Social History: Quit tobacco use on 02/11/22 Review of Systems Constitutional: Denies: chills, fever, weakness Eyes: Denies: pain, blurred vision ENT: Denies: ear pain, nose pain, throat pain, mouth pain Respiratory: Denies: cough, shortness of breath Cardiovascular: Denies: chest pain, palpitations Gastrointestinal: Denies: abdominal pain, nausea, vomiting Genitourinary: Denies: burning, dysuria Male Genitalia: Denies: penile discharge, testicular pain Neurological: Denies: headache, dizziness Musculoskeletal: Denies: pain, swelling Integumentary: Denies: rash, lesions Allergic/Immunologic: Denies: hives, itching Hematologic/Lymphatic: Denies: no symptoms reported Psychiatric: Denies: depression, anxiety Physical Exam Vital Signs: Temperature: 98.4, Source: Temporal, Heart Rate: 108, Respiratory Rate: 18, BP: 164/111, Pulse Oximetry: 99, Weight: 109.300 Oxygen Flow Rate: 0 Physical Exam General: Awake and Alert, no acute distress. HEENT: Conjunctiva pink, Sclera clear, Mucus Membranes moist. Neck: Supple without masses and tenderness. Resp: Unlabored. Lungs clear to auscultation bilaterally. Heart: Regular Rate and rhythm, normal S1 and S2 without murmur, rub or gallop. Abdomen: Soft and non tender no organomegaly Extremities: No cyanosis,clubbing or edema. Skin: Warm and Dry. Progress Results/Orders Results/Orders Completed Orders - JOSHUA DURHAM PAC Indomethacin Capsule (Indocin Capsule) (08/30/25 18:39) Vital Signs 08/30/25 17:15 Temp 98.4 Pulse 108 Resp 18 B/P (MAP) 164/111 Pulse Ox 99 O2 Flow Rate 0 Medical Decision Making Findings Patient is seen today with complaints of right ankle pain and swelling. Patient admits to history of gout in his concerned he might have a gout flare-up as he did eat some significant amount of red meat 5-7 days ago. Patient also states he rolled his ankle about six days ago and then had some swelling about four days ago in the right ankle and increased pain. Patient states he is now having trouble ambulating because of pain of the right ankle. Patient has no other concern or complaint at this time. Patient was given dose of indomethacin 50 mg one tab by mouth in the ED today for treatment of gout versus ankle sprain. Patient did have x-ray taken of right ankle that showed no sign of acute fracture. Patient was given prescription for indomethacin to be taken as directed. Patient will return to ED with any worsening, concerning or changing symptoms. Departure Disposition: 01 HOME / SELF CARE / HOMELESS Impression: Primary Impression: Sprain of ankle Qualified Codes: S93.401A - Sprain of unspecified ligament of right ankle, initial encounter Additional Impression: Gout attack Qualified Codes: M10.9 - Gout, unspecified Condition: Stable Discharge Instructions: Ankle Sprain Additional Instructions: Patient was given dose of indomethacin 50 mg one tab by mouth in the ED today for treatment of gout versus ankle sprain. Patient did have x-ray taken of right ankle that showed no sign of acute fracture. Patient was given prescription for indomethacin to be taken as directed. Patient will return to ED with any worsening, concerning or changing symptoms. Referrals: NO PRIMARY CARE PROVIDER (PCP) Prescriptions Indomethacin (Indomethacin) 50 Mg Capsule 1 CAP PO Q8H for arthritis for 5 Days, #15 CAP 0 Refills with food Prov: JOSHUA DURHAM 08/30/25 Signature Scribe Signature: No scribe Attestation: No scribe JOSHUA DURHAM Aug 30, 2025 18:46
[2025-08-30] MEDS ORDERED: INDO50CA96 PO (18:53)
== END 2025-08-30 19:29 | disposition home or self-care (01) ==
LOC: ER 17:08
DX: S93.401A Sprain of unspecified ligament of right ankle, initial encounter (principal); M10.9 Gout, unspecified; E78.00 Pure hypercholesterolemia, unspecified; I11.0 Hypertensive heart disease with heart failure; I25.10 Atherosclerotic heart disease of native coronary artery without angina pectoris; I50.9 Heart failure, unspecified; I25.2 Old myocardial infarction; Z87.891 Personal history of nicotine dependence; Z79.82 Long term (current) use of aspirin; X58.XXXA Exposure to other specified factors, initial encounter; Y93.89 Activity, other specified; Y92.89 Other specified places as the place of occurrence of the external cause; Y99.8 Other external cause status
CPT/HCPCS: 29540; 73610; 99284; L1930